=== PATIENT | female | born 1990 | race Two or more races ===

== ENCOUNTER 2021-01-11 00:53 | Emergency (ER) | payer MEDICAID ==
[~2021-01-11] VITALS: Ht 157.5 cm; Wt 68.0 kg
[2021-01-11 01:00] VITALS: BP 127/81
--- NOTE | 2021-01-11 01:00 | NUR ---
ED Nurse Note: Pt placed int RME. Pt walked into ED from home c/o palpitations, SOB and RAMIREZ after taking Sulfamethox-TMP DS BID. Pt took the whole course of ABX, pt was dx with UTI and was prescribed this medication. VSS in triage.
--- NOTE | 2021-01-11 01:15 | Emergency Room Report ---
History of Present Illness General Chief Complaint: General Complaint Source: Patient Present Illness HPI 30-year-old female here with nausea and headache. Patient finished a 3-day course of Bactrim that she took twice a day for 3 days and took the last pill earlier today. She says that about 30 minutes after taking the last pill she began to have generalized headache. Headache was gradual in onset and diffuse in nature. No vision changes, focal numbness or weakness, vomiting, chest pain, palpitation, shortness of breath, back pain, abdominal pain, nausea, vomiting, diarrhea, dysuria, rash. Allergies: Coded Allergies: No Known Allergies (Unverified , 01/11/21) COVID-19 Screening Contact w/high risk pt: No Experienced COVID-19 symptoms?: No COVID-19 Testing performed HHA: No Patient History Now: No Nursing Documentation-[facility] Past Medical History: No Stated History Review of Systems All Other Systems: negative except mentioned in HPI Physical Exam Vital Signs Date Time Temp Pulse Resp B/P (MAP) Pulse Ox O2 Delivery O2 Flow Rate FiO2 01/11/21 00:59 98.1 92 18 127/81 (96) 96 Room Air Sp02 EP Interpretation: reviewed, normal General Appearance: no apparent distress, alert, non-toxic Head: normocephalic, atraumatic Eyes: bilateral eye normal inspection, bilateral eye PERRL ENT: hearing grossly normal, normal pharynx, no angioedema, normal voice Neck: full range of motion, supple/symm/no masses Respiratory: chest non-tender, lungs clear, normal breath sounds, speaking full sentences Cardiovascular #1: regular rate, rhythm, no edema Cardiovascular #2: 2+ carotid (R), 2+ carotid (L), 2+ radial (R), 2+ radial (L), 2+ dorsalis pedis (R), 2+ dorsalis pedis (L) Gastrointestinal: normal bowel sounds, non tender, soft, non-distended, no guarding, no rebound Rectal: deferred Genitourinary: normal inspection, no CVA tenderness Musculoskeletal: back normal, normal range of motion, gait/station normal, non- tender Neurologic: alert, motor strength/tone normal, oriented x3, sensory intact, responsive, speech normal Psychiatric: judgement/insight normal, memory normal, mood/affect normal, no suicidal/homicidal ideation Lymphatic: no adenopathy Medical Decision Making Diagnostic Impression: Primary Impression: Headache Additional Impression: Nausea ER Course 30-year-old female here with headache and nausea after taking 3 days of Bactrim. Patient had no rashes. She was hemodynamically stable in the emergency department with normal vital signs. Was given Zofran and Tylenol with good resolution of her symptoms. CBC and CMP were unremarkable. No evidence of any blood dyscrasias or electrolyte abnormalities or Hooks-Rohan syndrome. Was told to return with any worsening symptoms. She expressed understanding and was discharged. Last Vital Signs Date Time Temp Pulse Resp B/P (MAP) Pulse Ox O2 Delivery O2 Flow Rate FiO2 01/11/21 00:59 98.1 92 18 127/81 (96) 96 Room Air Scripts Acetaminophen* (ACETAMINOPHEN EXTRA STRENGTH*) 500 Mg Tablet 500 MG ORAL Q6H for 5 Days, TAB Prov: Noah Qureshi M.D. 01/11/21 Ondansetron Odt* (ZOFRAN ODT*) 8 Mg Tab.rapdis 8 MG ORAL Q6H PRN for Nausea & Vomiting, #12 TAB Prov: Noah Qureshi M.D. 01/11/21 Noah Qureshi M.D. Jan 11, 2021 01:15
--- NOTE | 2021-01-11 01:20 | NUR ---
ED Nurse Note: urine and blood sent to lab
[2021-01-11 01:28] LABS: BASOPHILS % (AUTO) 0.9 % (0.0-2.0); EOSINOPHILS % (AUTO) 1.2 % (0.0-3.0); HEMATOCRIT 43.5 % (37.0-47.0); HEMOGLOBIN 13.9 G/DL (12.0-16.0); MEAN CORPUSCULAR VOLUME 93 FL (80-99); NEUTROPHILS % (AUTO) 57.9 % (45.0-75.0); PLATELET COUNT 276 K/UL (150-450); RED BLOOD COUNT 4.69 M/UL (4.20-5.40); RED CELL DISTRIBUTION WIDTH 13.7 % (11.6-14.8); WHITE BLOOD COUNT 9.2 K/UL (4.8-10.8)
[2021-01-11] MEDS ORDERED: ACETAMINOPHEN500 M3 ORAL (01:32)
[2021-01-11] MEDS ORDERED: ZOFRAN ODT8 MG ORAL (01:32)
[2021-01-11 01:38] LABS: ANION GAP 12 mmol/L (5-15); BLOOD UREA NITROGEN 13 mg/dL (7-18); CALCIUM 9.6 MG/DL (8.5-10.1); CARBON DIOXIDE 21 MMOL/L (21-32); CHLORIDE 108 MMOL/L (98-107); CREATININE 0.9 MG/DL (0.55-1.30); POTASSIUM 4.3 MMOL/L (3.5-5.1); SODIUM 141 MMOL/L (136-145)
[2021-01-11 01:43] LABS: ALANINE AMINOTRANSFERASE 25 U/L (12-78); ALBUMIN 4.2 G/DL (3.4-5.0); ALBUMIN/GLOBULIN RATIO 0.9 (1.0-2.7); ALKALINE PHOSPHATASE 89 U/L (46-116); ASPARTATE AMINO TRANSFERASE 14 U/L (15-37); BILIRUBIN,TOTAL 0.2 MG/DL (0.2-1.0)
[2021-01-11 01:50] VITALS: BP 126/78
--- NOTE | 2021-01-11 01:50 | NUR ---
ER DISCHARGE NOTE: Patient is cleared to be discharged per ERMD, pt is aox4, on room air, with stable vital signs. pt was given paper prescriptions for RAMIREZ and nausea, with instructions to return if symptoms do not subside or become worse. pt was able to verbalize understanding, pt id band and IV removed. pt is able to ambulate with steady gait. pt took all belongings.
== END 2021-01-11 01:50 | disposition home or self-care (01) ==
LOC: EMR 01:18
DX: R51.9 Headache, unspecified (principal); R11.0 Nausea
CPT/HCPCS: 36415; 80053; 81025; 85025; 93005; Z7502; 99284